=== PATIENT | female | born 1980 | race Hispanic/Latino ===

== ENCOUNTER 2018-07-25 13:16 | Emergency (ER) | payer BC ==
[2018-07-25 13:48] VITALS: RESP 18; TEMP 98.2; O2SAT 98; BMI 35.1
[2018-07-25] MEDS ORDERED: Sodium Chloride 0.9% 1,000 ML IV STA ×2 (14:35→15:40)
--- NOTE | 2018-07-25 15:07 | ED PDOC ---
Arrival/HPI - General Chief Complaint: Lower Extremity Problem/Injury Time Seen by Provider: 07/25/18 13:53 Historian: Patient - History of Present Illness Narrative History of Present Illness (Text): 07/25/18 12:55 37 year old female, whose past medical history includes recent left foot surgery , who presents to the Emergency department complaining of left leg pain, noting she had a podiatric left foot surgery recently on June 22, 2018. Patient notes she had some swelling in her left calf last week when she saw her Lock[employer] Maker who ordered a duplex. 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 Patient denies any fevers, chills, chest pain, shortness of breath, abdominal pain, nausea, vomiting, diarrhea, back pain, neck pain, urinary symptoms, headache, dizziness, or any other complaint. Time/Duration: Prior to Arrival Symptom Onset: Gradual Symptom Course: Unchanged Context: Work (while working as a ocean lifeguard) Past Medical History - Provider Review Nursing Documentation Reviewed: Yes - Infectious Disease Hx of Infectious Diseases: None - Tetanus Immunization Tetanus Immunization: Unknown - Psychiatric Hx Depression: No Hx Emotional Abuse: No Hx Physical Abuse: No Hx Substance Use: No - Anesthesia Hx Anesthesia: Yes Hx Anesthesia Reactions: No Hx Malignant Hyperthermia: No - Suicidal Assessment Feels Threatened In Home Enviroment: No Family/Social History - Physician Review Nursing Documentation Reviewed: Yes Family/Social History: No Known Family HX Smoking Status: Never Smoked Hx Alcohol Use: No Hx Substance Use: No Hx Substance Use Treatment: No Allergies/Home Meds Allergies/Adverse Reactions: Allergies chlorpheniramine [From [employer] (cpm-DM)] Allergy (Verified 14:30) ANAPHYLAXIS dextromethorphan [From [employer] (cpm-DM)] Allergy (Verified 14:30) ANAPHYLAXIS diphenhydramine [From Benadryl] Allergy (Verified 07/25/18 14:30) ANAPHYLAXIS iodine Allergy (Verified 07/25/18 14:30) ANAPHYLAXIS omeprazole Allergy (Verified 07/25/18 14:30) ANAPHYLAXIS Home Medications: Home Meds Medication Instructions Recorded Confirmed Albuterol 0.09 mg IH 05/05/13 05/05/13 Diclofenac Sodium [Diclofenac] 75 mg PO 05/05/13 05/05/13 Lansoprazole [Prevacid] 30 mg PO 05/05/13 05/05/13 Levocetirizine Dihydrochlori 5 mg PO DAILY 05/05/13 05/05/13 [Xyzal] Montelukast [Singulair] 10 mg PO DAILY 05/05/13 05/05/13 Naproxen [Naprosyn] 500 mg PO 05/05/13 05/05/13 Nortriptyline Hydrochloride 10 mg PO 05/05/13 05/05/13 [Notriptyline] Uric Acid 1 pow NA 05/05/13 05/05/13 l-Norgest/E.estradiol-E.estrad 1 tab PO 05/05/13 05/05/13 [Camrese] Review of Systems - Physician Review All systems were reviewed & negative as marked: Yes - Review of Systems Constitutional: Normal. absent: Fevers Eyes: Normal ENT: Normal Respiratory: Normal. absent: SOB, Cough Cardiovascular: Normal. absent: Chest Pain Gastrointestinal: Normal. absent: Diarrhea, Nausea, Vomiting Genitourinary Female: Normal Musculoskeletal: Other (left leg pain.). absent: Normal, Back Pain, Neck Pain Skin: Normal Neurological: Normal. absent: Headache, Dizziness Endocrine: Normal Hemo/Lymphatic: Normal Psychiatric: Normal Physical Exam Vital Signs Reviewed: Yes Vital Signs Temp Pulse Resp BP Pulse Ox 07/25/18 15:13 89 18 148/69 98 07/25/18 13:47 98.2 F 97 H 18 155/74 H 98 Temperature: Afebrile Blood Pressure: Hypertensive Pulse: Tachycardic Respiratory Rate: Normal Appearance: Positive for: Well-Appearing, Non-Toxic Pain Distress: Mild Mental Status: Positive for: Alert and Oriented X 3 - Systems Exam Head: Present: Atraumatic, Normocephalic Pupils: Present: PERRL Extroacular Muscles: Present: EOMI Conjunctiva: Present: Normal Mouth: Present: Moist Mucous Membranes Neck: Present: Normal Range of Motion Respiratory/Chest: Present: Clear to Auscultation, Good Air Exchange. No: Respiratory Distress, Accessory Muscle Use Cardiovascular: Present: Regular Rate and Rhythm, Normal S1, S2. No: Murmurs Abdomen: No: Tenderness, Distention, Peritoneal Signs Back: Present: Normal Inspection Upper Extremity: Present: Normal Inspection. No: Cyanosis, Edema Lower Extremity: Present: Swelling (some left calf swelling). No: Normal Inspection, Edema Neurological: Present: GCS=15, CN II-XII Intact, Speech Normal Skin: Present: Warm, Dry, Normal Color. No: Rashes Psychiatric: Present: Alert, Oriented x 3, Normal Insight, Normal Concentration Medical Decision Making ED Course and Treatment: 07/25/18 13:55 Impression: 37 year old female presents to the Emergency department complaining of left leg pain, noting she had a podiatric left foot surgery recently on June 22, 2018. Differential Diagnosis included but are not limited to: Plan: -- Labs -- IV fluids -- Urine test Routine -- Urinalysis -- US of duplex lower extremity vein left -- Reassess and disposition Prior Visits: Notes and results from previous visits were reviewed. Progress Notes: US of of duplex lower extremity vein left reviewed, shows: Negative for DVT. - Lab Interpretations Lab Results: 07/25/18 14:45 07/25/18 14:45 Lab Results 07/25/18 14:50: Urine Color Dark yellow, Urine Appearance Clear, Urine pH 6.0, Ur Specific [place] 1.025, Urine Protein Trace H, Urine Glucose (UA) Negative, Urine Ketones 40 H, Urine Blood Negative, Urine Nitrate Negative, Urine Bilirubin Small H, Urine Urobilinogen 1.0 H, Ur Leukocyte Esterase Trace H, Urine RBC 0 - 2, Urine WBC 2 - 5, Ur Epithelial Cells 4 - 5, Urine Bacteria Few 07/25/18 14:45: Sodium 138, Potassium 3.9, Chloride 104, Carbon Dioxide 24, Anion Gap 14, BUN 12, Creatinine 0.9, Est GFR ( Amer) > 60, Est GFR (Non- Af Amer) > 60, Random Glucose 82, Calcium 9.3, Total Bilirubin 0.6, AST 35, ALT 49, Alkaline Phosphatase 83, Total Protein 6.9, Albumin 3.8, Globulin 3.0, Albumin/Globulin Ratio 1.3 07/25/18 14:45: PT 11.4, INR 1.00 07/25/18 14:45: WBC 8.2, RBC 4.65, Hgb 12.6, Hct 37.5, MCV 80.6, MCH 27.1, MCHC 33.6, RDW 13.6, Plt Count 345, MPV 9.1, Gran % 77.2 H, Lymph % (Auto) 15.2 L, Dickenson % (Auto) 6.9 H, Eos % (Auto) 0.6 L, Baso % (Auto) 0.1, Gran # 6.31, Lymph # (Auto) 1.2, [place] # (Auto) 0.6, Eos # (Auto) 0.1, Baso # (Auto) 0.01 - RAD Interpretation Radiology Orders: 07/25/18 14:35 DUPLEX LOWER EXTRM VEIN LEFT [US] Stat Leather Scraper: ED Physician - Medication Orders Current Medication Orders: Sodium Chloride (Sodium Chloride 0.9%) 1,000 mls @ 999 mls/hr IV .Q1H1M STA Stop: 07/25/18 16:40 Last Admin: 07/25/18 16:11 Dose: 999 mls/hr eMAR Start Stop Document 07/25/18 16:11 EQ (Rec: 07/25/18 16:11 EQ [id number]) Intravenous Solution Start Date 07/25/18 Start Time 16:11 Discontinued Medications Sodium Chloride (Sodium Chloride 0.9%) 1,000 mls @ 999 mls/hr IV .Q1H1M STA Stop: 07/25/18 15:35 Last Admin: 07/25/18 14:43 Dose: 999 mls/hr eMAR Start Stop Document 07/25/18 14:43 EQ (Rec: 07/25/18 14:43 EQ [id number]) Intravenous Solution Start Date 07/25/18 Start Time 14:43 Ceftriaxone Sodium (Rocephin 1 Gram Ivpb) 1 gm in 100 mls @ 200 mls/hr IVPB STAT STA PRN Reason: Protocol Stop: 07/25/18 16:09 Last Admin: 07/25/18 16:10 Dose: 200 mls/hr eMAR Start Stop Document 07/25/18 16:10 EQ (Rec: 07/25/18 16:10 EQ [id number]) Intravenous Solution Start Date 07/25/18 Start Time 16:10 - Scribe Statement The provider has reviewed the documentation as recorded by the Scribe Syeda Richmond All medical record entries made by the Scribe were at my direction and personally dictated by me. I have reviewed the chart and agree that the record accurately reflects my personal performance of the history, physical exam, medical decision making, and the department course for this patient. I have also personally directed, reviewed, and agree with the discharge instructions and disposition. Disposition/Present on Arrival - Present on Arrival Any Indicators Present on Arrival: No History of DVT/PE: No History of Uncontrolled Diabetes: No Urinary Catheter: No History of Decub. Ulcer: No History Surgical Site Infection Following: None - Disposition Have Diagnosis and Disposition been Completed?: Yes Diagnosis: Dehydration, UTI (urinary tract infection) Disposition: HOME/ ROUTINE Disposition Time: 15:55 Patient Plan: Discharge Patient Problems: Current Active Problems Problem Status Onset Dehydration Acute UTI (urinary tract infection) Acute Condition: GOOD Discharge Instructions (ExitCare): Urinary Tract Infection, Adult (DC) Additional Instructions: Mrs Williamson - Please drink enough water, you are a little dehydrated. Return to us if worse or any problems. The scan of your leg was negative for DVT. You do have a urinary tract infection. Take Keflex three times a day for a full ten days. Ed[place]- Dr. Colt Fraire Prescriptions: Cephalexin [Keflex] 500 mg PO TID #30 capsule Forms: [facility] (Nepalese), WORK NOTE
[2018-07-25 15:22] LABS: BASO # 0.01 K/mm3 (0.0-2.0); BASO % 0.1 % (0.0-3.0); EOS # 0.1 (0.0-0.7); EOS % 0.6 % (1.5-5.0); GRAN # 6.31 (1.4-6.5); GRAN % 77.2 % (50.0-68.0); HEMOGLOBIN 12.6 g/dL (12.0-16.0); LYMPH # 1.2 (1.2-3.4); LYMPH % 15.2 % (22.0-35.0); MEAN CELL VOLUME 80.6 fl (80.0-105.0); MEAN CORPUSCULAR HEMOGLOBIN 27.1 pg (25.0-35.0); MEAN CORPUSCULAR HGB CONC 33.6 g/dl (31.0-37.0); MEAN PLATELET VOLUME 9.1 fl (7.0-11.0); MONO # 0.6 (0.1-0.6); MONO % 6.9 % (1.0-6.0); PROTHROMBIN TIME 11.4 SECONDS (9.4-12.5); RBC 4.65 10^6/uL (3.5-6.1); RED CELL DISTRIBUTION WIDTH 13.6 % (11.5-14.5); WHITE BLOOD COUNT 8.2 10^3/ul (4.5-11.0)
[2018-07-25 15:23] LABS: URINE BILIRUBIN SMALL (NEGATIVE); URINE BLOOD NEGATIVE (NEGATIVE); URINE GLUCOSE (UA) NEGATIVE (NEGATIVE); URINE LEUKOCYTE ESTERASE TRACE Leu/uL (NEGATIVE); URINE PROTEIN TRACE mg/dL (<30 mg/dL)
[2018-07-25 15:24] LABS: URINE APPEARANCE CLEAR (CLEAR); URINE COLOR DARK YELLOW (YELLOW)
[2018-07-25 15:28] LABS: ALB/GLOB RATIO 1.3 (1.1-1.8); ALBUMIN 3.8 g/dL (3.0-4.8); ALT/SGPT 49 U/L (7-56); AST/SGOT 35 U/L (14-36); BLOOD UREA NITROGEN 12 mg/dL (7-21); CALCIUM 9.3 mg/dL (8.4-10.5); GFR NON-AFRICAN AMERICAN > 60
[2018-07-25 15:31] LABS: URINE BACTERIA FEW (NEG); URINE RBC 0 - 2 /hpf (0-2)
[2018-07-25] MEDS ORDERED: cefTRIAXone 1 gm 1 GM/100 ML BAG IVPB STA (15:40)
[2018-07-25 16:23] VITALS: BP 145/64; PULSE 84
--- NOTE | 2018-07-25 18:59 | US ---
PROCEDURE: Left lower extremity venous US HISTORY: Leg pain and swelling. Evaluate for DVT. PHYSICIAN(S): Jono Mondragon MD. TECHNIQUE: Duplex sonography and color-flow Doppler with graded compression were used to evaluate the deep venous system of the left lower extremity. FINDINGS: The visualized deep venous system of the left lower extremity is sonographically normal and compressible. Normal wave forms and augmentation are seen. There is no sonographic evidence for deep venous thrombosis in the visualized segments of the left lower extremity. IMPRESSION: 1. No sonographic evidence for deep venous thrombosis in the visualized segments of the left lower extremity.
== END 2018-07-25 16:54 | disposition home or self-care (01) ==
LOC: ED 13:16
DX: N39.0 Urinary tract infection, site not specified (principal); E86.0 Dehydration
CPT/HCPCS: 80053; 81001; 81025; 85025; 85610; 87086; 93971; 96374; 99284; J0696; J7030